=== PATIENT | male | born 1960 | race Caucasian/White ===

== ENCOUNTER 2024-03-10 09:33 | Emergency (ER) | payer OTHER ==
[~2024-03-10] VITALS: Ht 170.2 cm; Wt 65.8 kg
[2024-03-10 09:39] VITALS: TEMP 99.4
[2024-03-10] MEDS: KETOROLAC TROMETHAMINE 30 MG/ML VIAL IV STA (09:58)
[2024-03-10] MEDS: ALBUTEROL SULF 0.083% NEB SOLN 3 ML NEB NEB STA (10:05)
[2024-03-10 10:06] VITALS: PULSE 93; RESP 24; O2SAT 96
[2024-03-10] MEDS: IPRATROPIUM BROMIDE 0.02% 2.5 ML NEB NEB ONE (10:06)
[2024-03-10 10:09] LABS: BASOPHILS % 0.7 % (0.0-1.0); EOSINOPHILS % 0.5 % (0.0-6.0); HEMATOCRIT 46.3 % (38.2-49.6); HEMOGLOBIN 15.8 g/dL (14.0-18.0); LYMPHOCYTES # (AUTO) 1.9 (1.0-3.2); MEAN CORPUSCULAR HGB CONC 34.1 g/dL (31-35); MEAN CORPUSCULAR VOLUME 99.6 fL (81-99); MONOCYTES # (AUTO) 0.7 (0.2-0.8); MONOCYTES % 11.8 % (4.4-11.3); NEUTROPHILS % 52.6 % (38.7-80.0); PLATELET COUNT 149 x10e3/uL (140-360); RED BLOOD COUNT 4.65 x10e6/uL (4.3-5.7); RED CELL DISTRIBUTION WIDTH 12.2 % (11.7-14.4)
[2024-03-10 10:28] LABS: ALBUMIN 3.6 g/dL (3.5-5.0); ALBUMIN/GLOBULIN RATIO 0.8 (0.8-2.0); BILIRUBIN,TOTAL 1.1 mg/dL (0.2-1.2); CALCIUM 9.6 mg/dL (8.4-10.2); CREATININE, SERUM 1.12 mg/dL (0.72-1.25); TOTAL PROTEIN 8.2 g/dL (6.5-8.1)
[2024-03-10 10:48] VITALS: RESP 24
[2024-03-10 10:49] LABS: ANION GAP 22.3 mmol/L (8-16); POTASSIUM 4.3 mmol/L (3.0-5.1)
[2024-03-10 11:18] VITALS: PULSE 80
[2024-03-10] MEDS ORDERED: DEXAMETHASONE6 MG PO (11:45)
[2024-03-10 12:02] VITALS: BP 126/88; PULSE 82; RESP 22; O2SAT 95
[2024-03-22] MEDS ORDERED: PREDNISONE20 MG PO (10:52)
[2024-03-22] MEDS ORDERED: DOXYCYCLINE HY100 MG PO (10:52)
[2024-03-22] MEDS ORDERED: ALBUTEROL1.25 MG/3 NEB (10:54)
[2024-03-22] MEDS ORDERED: ALBUTEROL2.5 MG/3 M NEB (10:59)
[2024-03-22] MEDS ORDERED: VENTOLIN HFA18 GM INH (10:59)
== END 2024-03-10 12:02 | disposition home or self-care (01) ==
LOC: ER 09:37
DX: J44.1 Chronic obstructive pulmonary disease with (acute) exacerbation (principal); Z72.0 Tobacco use
CPT/HCPCS: 36415; 71045; 80053; 83880; 85025; 93005; 94640; 94799; 99284; J1885

== ENCOUNTER 2024-06-15 07:32 | Emergency (ER) | payer OTHER ==
[~2024-06-15] VITALS: Ht 170.2 cm; Wt 56.7 kg
[~2024-06-15 07:32] MED LIST: ALBUTEROL1.25 MG/3 NEB; ALBUTEROL2.5 MG/3 M NEB; DEXAMETHASONE6 MG PO; DOXYCYCLINE HY100 MG PO; PREDNISONE20 MG PO; VENTOLIN HFA18 GM INH
[2024-06-15 07:35] VITALS: TEMP 98.2
[2024-06-15] MEDS ORDERED: METHYLPREDNISOLONE SOD SUCC 125 MG/2ML VIAL ONE (07:46)
[2024-06-15 07:57] LABS: BASOPHILS # (AUTO) 0.1 (0.0-0.1); BASOPHILS % 1.2 % (0.0-1.0); EOSINOPHILS # (AUTO) 0.5 (0.0-0.4); EOSINOPHILS % 7.1 % (0.0-6.0); HEMATOCRIT 50.3 % (38.2-49.6); HEMOGLOBIN 16.7 g/dL (14.0-18.0); LYMPHOCYTES # (AUTO) 2.5 (1.0-3.2); LYMPHOCYTES % 36.7 % (18.0-39.1); MEAN CORPUSCULAR HEMOGLOBIN 33.5 pg (28-32); MEAN CORPUSCULAR HGB CONC 33.2 g/dL (31-35); MONOCYTES # (AUTO) 0.6 (0.2-0.8); MONOCYTES % 8.9 % (4.4-11.3); NEUTROPHILS # (AUTO) 3.1 (2.1-6.9); NEUTROPHILS % 45.8 % (38.7-80.0); PLATELET COUNT 156 x10e3/uL (140-360); RED BLOOD COUNT 4.98 x10e6/uL (4.3-5.7); RED CELL DISTRIBUTION WIDTH 11.9 % (11.7-14.4); WHITE BLOOD COUNT 6.76 x10e3/uL (4.8-10.8)
[2024-06-15 07:58] VITALS: PULSE 87; RESP 19
[2024-06-15] MEDS: SODIUM CHLORIDE 0.9% 500ML 500 ML IV ONE (07:58)
[2024-06-15] MEDS: METHYLPREDNISOLONE SOD SUCC 125 MG/2ML VIAL IV STA (08:04)
[2024-06-15] MEDS: HYDROCODONE/APAP 5MG-325MG TAB PO ONE (08:06)
[2024-06-15 08:12] LABS: INR 0.92; PROTHROMBIN TIME 12.9 seconds (11.9-14.5)
[2024-06-15 08:13] LABS: PARTIAL THROMBOPLASTIN TIME 25.8 seconds (23.8-35.5)
[2024-06-15 08:22] VITALS: PULSE 86; RESP 18; O2SAT 97
[2024-06-15 08:22] LABS: ALBUMIN 3.9 g/dL (3.5-5.0); ALBUMIN/GLOBULIN RATIO 0.9 (0.8-2.0); ANION GAP 13.9 mmol/L (8-16); BILIRUBIN,TOTAL 0.8 mg/dL (0.2-1.2); CALCIUM 10.2 mg/dL (8.4-10.2); CREATININE, SERUM 0.96 mg/dL (0.72-1.25); MAGNESIUM 2.2 MG/DL (1.3-2.1); POTASSIUM 4.9 mmol/L (3.5-5.1); TOTAL PROTEIN 8.3 g/dL (6.5-8.1)
[2024-06-15 08:23] VITALS: PULSE 86; RESP 18; O2SAT 97
[2024-06-15] MEDS: ALBUTEROL/IPRATROPIUM 3 ML NEB NEB ONE (08:23)
[2024-06-15 08:28] LABS: TROPONIN I 0.008 ng/mL (0-0.300)
[2024-06-15] MEDS ORDERED: VENTOLIN HFA18 GM INH (09:04)
[2024-06-15] MEDS ORDERED: MEDROL4 M2 PO (09:04)
[2024-06-15] MEDS ORDERED: DOXYCYCLINE HY100 M3 PO (09:04)
== END 2024-06-15 10:15 | disposition home or self-care (01) ==
LOC: ER 07:44
DX: R06.00 Dyspnea, unspecified (principal); J44.1 Chronic obstructive pulmonary disease with (acute) exacerbation; R05.9 Cough, unspecified; M54.9 Dorsalgia, unspecified; G89.29 Other chronic pain
CPT/HCPCS: 36415; 71045; 80053; 82550; 83735; 84484; 85025; 85610; 85730; 93005; 94799; 99284; J2919; J7040

== ENCOUNTER 2024-07-06 18:12 | Emergency (ER) | payer OTHER ==
[~2024-07-06] VITALS: Ht 170.2 cm; Wt 56.7 kg
[~2024-07-06 18:12] MED LIST changes: +DOXYCYCLINE HY100 M3 PO; +MEDROL4 M2 PO
[2024-07-06 18:23] VITALS: RESP 20; TEMP 98.1
[2024-07-06 18:37] LABS: BASOPHILS % 0.2 % (0.0-1.0); EOSINOPHILS % 0.7 % (0.0-6.0); HEMATOCRIT 44.5 % (38.2-49.6); HEMOGLOBIN 14.5 g/dL (14.0-18.0); LYMPHOCYTES # (AUTO) 2.2 (1.0-3.2); LYMPHOCYTES % 35.6 % (18.0-39.1); MEAN CORPUSCULAR HEMOGLOBIN 33.5 pg (28-32); MEAN CORPUSCULAR HGB CONC 32.6 g/dL (31-35); MEAN CORPUSCULAR VOLUME 102.8 fL (81-99); MONOCYTES # (AUTO) 0.6 (0.2-0.8); MONOCYTES % 10.1 % (4.4-11.3); NEUTROPHILS # (AUTO) 3.3 (2.1-6.9); NEUTROPHILS % 52.9 % (38.7-80.0); PLATELET COUNT 128 x10e3/uL (140-360); RED BLOOD COUNT 4.33 x10e6/uL (4.3-5.7); RED CELL DISTRIBUTION WIDTH 11.6 % (11.7-14.4); WHITE BLOOD COUNT 6.15 x10e3/uL (4.8-10.8)
[2024-07-06 19:01] LABS: ALBUMIN 3.4 g/dL (3.5-5.0); ANION GAP 14.8 mmol/L (8-16); BILIRUBIN,TOTAL 0.6 mg/dL (0.2-1.2); CREATININE, SERUM 0.96 mg/dL (0.72-1.25); POTASSIUM 3.8 mmol/L (3.5-5.1); TOTAL PROTEIN 6.7 g/dL (6.5-8.1)
[2024-07-06] MEDS ORDERED: AZITHROMYCIN250 MG PO (19:32)
[2024-07-06] MEDS ORDERED: KETOROLAC TROME10 MG PO (19:32)
[2024-07-06 19:35] VITALS: PULSE 66
[2024-07-06 19:43] VITALS: BP 129/84; O2SAT 100
== END 2024-07-06 19:44 | disposition home or self-care (01) ==
LOC: ER 18:16
DX: R10.12 Left upper quadrant pain (principal); S22.32XA Fracture of one rib, left side, initial encounter for closed fracture; J44.9 Chronic obstructive pulmonary disease, unspecified; M54.9 Dorsalgia, unspecified; G89.29 Other chronic pain
CPT/HCPCS: 36415; 74176; 80053; 83690; 85025; 99284

== ENCOUNTER 2024-07-08 20:27 | Inpatient (IN) | payer OTHER ==
[~2024-07-08] VITALS: Ht 170.2 cm; Wt 51.4 kg
[~2024-07-08 20:27] MED LIST changes: +AZITHROMYCIN250 MG PO; +KETOROLAC TROME10 MG PO
[2024-07-08 20:30] VITALS: PULSE 86; RESP 18; TEMP 98.6
[2024-07-08] MEDS ORDERED: DIAZEPAM INJ 5 MG/ML 2 ML IV ONE (20:30)
[2024-07-08] MEDS: ALBUTEROL/IPRATROPIUM 3 ML NEB NEB STA ×2 (20:32→21:06)
[2024-07-08] MEDS ORDERED: ONDANSETRON HCL INJ 2MG/ML 2ML 2 MG/ML VIAL IV PRN (20:45)
[2024-07-08] MEDS: SODIUM CHLORIDE 0.9% 1000ML 1,000 ML IV SCH (20:45)
[2024-07-08] MEDS ORDERED: Morphine 4mg INJECTION 4 MG/ML INJ IV PRN (20:45)
[2024-07-08 21:04] VITALS: PULSE 85; RESP 22; O2SAT 100
[2024-07-08 21:10] LABS: BASOPHILS % 0.2 % (0.0-1.0); EOSINOPHILS # (AUTO) 0.3 (0.0-0.4); EOSINOPHILS % 5.1 % (0.0-6.0); HEMATOCRIT 41.7 % (38.2-49.6); HEMOGLOBIN 13.6 g/dL (14.0-18.0); LYMPHOCYTES # (AUTO) 2.1 (1.0-3.2); LYMPHOCYTES % 41.3 % (18.0-39.1); MEAN CORPUSCULAR HEMOGLOBIN 33.6 pg (28-32); MEAN CORPUSCULAR HGB CONC 32.6 g/dL (31-35); MONOCYTES # (AUTO) 0.5 (0.2-0.8); MONOCYTES % 9.6 % (4.4-11.3); NEUTROPHILS # (AUTO) 2.2 (2.1-6.9); NEUTROPHILS % 42.8 % (38.7-80.0); PLATELET COUNT 145 x10e3/uL (140-360); RED BLOOD COUNT 4.05 x10e6/uL (4.3-5.7); RED CELL DISTRIBUTION WIDTH 11.7 % (11.7-14.4); WHITE BLOOD COUNT 5.09 x10e3/uL (4.8-10.8)
[2024-07-08 21:25] LABS: ALBUMIN 3.4 g/dL (3.5-5.0); ANION GAP 13.3 mmol/L (8-16); BILIRUBIN,TOTAL 0.4 mg/dL (0.2-1.2); CALCIUM 8.9 mg/dL (8.4-10.2); CREATININE, SERUM 0.87 mg/dL (0.72-1.25); TOTAL PROTEIN 6.7 g/dL (6.5-8.1)
[2024-07-08 21:31] LABS: TROPONIN I 0.012 ng/mL (0-0.300)
[2024-07-08 21:32] LABS: POTASSIUM 3.3 mmol/L (3.5-5.1)
[2024-07-08] MEDS ORDERED: ACETAMINOPHEN 325 MG TAB PO PRN (23:30)
[2024-07-08] MEDS ORDERED: LABETALOL HCL 5 MG/ML 20ML VIAL IV PRN (23:30)
[2024-07-08] MEDS ORDERED: POLYETHYLENE GLYCOL 3350 17 GM PACK PO PRN (23:30)
[2024-07-09] VITALS (29 sets, daily range): BP systolic 1–163; BP diastolic 57–98; PULSE 58–99; RESP 14–25; TEMP 97.5–99.5; O2SAT 83–100
[2024-07-09] MEDS: LORAZEPAM INJ 2 MG/ML VIAL IV STA (00:21)
[2024-07-09 07:16] LABS: BASOPHILS % 0.5 % (0.0-1.0); EOSINOPHILS # (AUTO) 0.2 (0.0-0.4); EOSINOPHILS % 3.6 % (0.0-6.0); HEMATOCRIT 38.4 % (38.2-49.6); HEMOGLOBIN 12.3 g/dL (14.0-18.0); LYMPHOCYTES # (AUTO) 1.8 (1.0-3.2); LYMPHOCYTES % 27.3 % (18.0-39.1); MEAN CORPUSCULAR HEMOGLOBIN 33.2 pg (28-32); MEAN CORPUSCULAR VOLUME 103.8 fL (81-99); MONOCYTES # (AUTO) 0.6 (0.2-0.8); MONOCYTES % 9.9 % (4.4-11.3); NEUTROPHILS # (AUTO) 3.8 (2.1-6.9); NEUTROPHILS % 58.1 % (38.7-80.0); PLATELET COUNT 149 x10e3/uL (140-360); RED CELL DISTRIBUTION WIDTH 11.9 % (11.7-14.4); WHITE BLOOD COUNT 6.45 x10e3/uL (4.8-10.8)
[2024-07-09 07:33] LABS: ALBUMIN 2.9 g/dL (3.5-5.0); ALBUMIN/GLOBULIN RATIO 1.1 (0.8-2.0); ANION GAP 11.2 mmol/L (8-16); BILIRUBIN,TOTAL 0.5 mg/dL (0.2-1.2); CALCIUM 8.2 mg/dL (8.4-10.2); CREATININE, SERUM 0.8 mg/dL (0.72-1.25); TOTAL PROTEIN 5.5 g/dL (6.5-8.1)
[2024-07-09 07:35] LABS: POTASSIUM 3.2 mmol/L (3.5-5.1)
[2024-07-09 08:11] LABS: CHOL/HDL RATIO 2.1 (3.9-4.7); MAGNESIUM 1.8 MG/DL (1.3-2.1); PHOSPHORUS 2.7 MG/DL (2.3-4.7)
[2024-07-09 08:12] LABS: TROPONIN I 0.001 ng/mL (0-0.300)
[2024-07-09 08:34] LABS: FREE T4 (FREE THYROXINE) 1.05 ng/dL (0.8-1.8); THYROID STIMULATING HORMONE 1.987 uIU/mL (0.350-4.940)
[2024-07-09] MEDS: ALBUTEROL SULF 0.083% NEB SOLN 3 ML NEB NEB SCH (08:37)
[2024-07-09] MEDS: ALBUTEROL SULF 0.083% NEB SOLN 3 ML NEB ONE (08:49)
[2024-07-09] MEDS: DOCUSATE SODIUM 100 MG CAP PO SCH (09:00)
[2024-07-09] MEDS: METHYLPREDNISOLONE SOD SUCC 40 MG/ML VIAL 1ML IV SCH (09:27)
[2024-07-09] MEDS: POTASSIUM CHLORIDE 20 MEQ TAB CR PO ONE (09:27)
[2024-07-09] MEDS: Doxycycline IV 100 MG in SODIUM CHLORIDE 0.9% 100 ML IV SCH (09:27)
[2024-07-09] MEDS: FAMOTIDINE 20 MG/2 ML VIAL IV SCH (09:27)
[2024-07-09] MEDS: ALBUTEROL SULF 0.083% NEB SOLN 3 ML NEB NEB PRN (11:54)
[2024-07-09] MEDS: HYDROCODONE/APAP 5MG-325MG TAB PO PRN (14:35)
[2024-07-09 15:23] LABS: TROPONIN I 0.012 ng/mL (0-0.300)
[2024-07-09] MEDS: BUDESONIDE/FORMOTEROL 160/4.5MCG INHALER INH SCH (19:05)
[2024-07-10] VITALS (32 sets, daily range): BP systolic 95–125; BP diastolic 56–80; PULSE 48–77; RESP 13–24; TEMP 98.1–98.6; O2SAT 95–100
[2024-07-10] MEDS: POTASSIUM CHLORIDE 20 MEQ TAB CR PO ONE ×2 (14:26→14:27)
[2024-07-10] MEDS ORDERED: IOPAMIDOL 370 MG/ML 100 ML INFUS..BTL INJ ONE (15:08)
[2024-07-11] VITALS (20 sets, daily range): BP systolic 97–134; BP diastolic 51–94; PULSE 37–80; RESP 13–22; TEMP 98.3–98.4; O2SAT 98–100
[2024-07-11 07:04] LABS: BASOPHILS % 0.3 % (0.0-1.0); EOSINOPHILS # (AUTO) 0.1 (0.0-0.4); EOSINOPHILS % 0.5 % (0.0-6.0); HEMATOCRIT 41.4 % (38.2-49.6); HEMOGLOBIN 13.1 g/dL (14.0-18.0); LYMPHOCYTES # (AUTO) 2.2 (1.0-3.2); LYMPHOCYTES % 22.9 % (18.0-39.1); MEAN CORPUSCULAR HEMOGLOBIN 33.3 pg (28-32); MEAN CORPUSCULAR HGB CONC 31.6 g/dL (31-35); MEAN CORPUSCULAR VOLUME 105.3 fL (81-99); MONOCYTES # (AUTO) 0.7 (0.2-0.8); MONOCYTES % 7.2 % (4.4-11.3); NEUTROPHILS # (AUTO) 6.6 (2.1-6.9); NEUTROPHILS % 68.3 % (38.7-80.0); PLATELET COUNT 142 x10e3/uL (140-360); RED BLOOD COUNT 3.93 x10e6/uL (4.3-5.7); RED CELL DISTRIBUTION WIDTH 11.9 % (11.7-14.4); WHITE BLOOD COUNT 9.71 x10e3/uL (4.8-10.8)
[2024-07-11 07:40] LABS: ALBUMIN 2.8 g/dL (3.5-5.0); ALBUMIN/GLOBULIN RATIO 0.9 (0.8-2.0); ANION GAP 9.9 mmol/L (8-16); BILIRUBIN,TOTAL 0.3 mg/dL (0.2-1.2); CALCIUM 8.8 mg/dL (8.4-10.2); CREATININE, SERUM 0.81 mg/dL (0.72-1.25); POTASSIUM 3.9 mmol/L (3.5-5.1); TOTAL PROTEIN 5.8 g/dL (6.5-8.1)
[2024-07-12] MEDS ORDERED: PREDNISONE 20 MG TAB PO SCH (09:00)
== END 2024-07-11 15:05 | disposition left against medical advice (07) | DRG 190 ==
LOC: ER 20:29 → ERHOLD 20:41 → ICU 07-09 00:05
PROVIDERS: ADMIT Internal Medicine; ATTEND Internal Medicine
PROC: 5A09357 Assistance with Respiratory Ventilation, Less than 24 Consecutive Hours, Continuous Positive Airway Pressure (ICD-10-PCS; principal; 2024-07-08)
DX: J44.1 Chronic obstructive pulmonary disease with (acute) exacerbation (principal); E43 Unspecified severe protein-calorie malnutrition; J96.20 Acute and chronic respiratory failure, unspecified whether with hypoxia or hypercapnia; R64 Cachexia; S22.32XA Fracture of one rib, left side, initial encounter for closed fracture; Z68.1 Body mass index [BMI] 19.9 or less, adult; E87.6 Hypokalemia; D64.9 Anemia, unspecified; J43.9 Emphysema, unspecified; G89.4 Chronic pain syndrome; M47.817 Spondylosis without myelopathy or radiculopathy, lumbosacral region; R93.3 Abnormal findings on diagnostic imaging of other parts of digestive tract; R53.81 Other malaise; R45.1 Restlessness and agitation; Z79.51 Long term (current) use of inhaled steroids; Z79.52 Long term (current) use of systemic steroids; X58.XXXA Exposure to other specified factors, initial encounter; Z87.828 Personal history of other (healed) physical injury and trauma; Z87.891 Personal history of nicotine dependence
CPT/HCPCS: 36415; 71045; 74177; 80053; 80061; 82550; 83036; 83690; 83735; 83880; 84100; 84439; 84443; 84484; 85025; 93005; 94640; 94660; 94664; 94799; 99252; 99284; J2919; J7030; J7050; Q9967

== ENCOUNTER 2025-02-20 20:49 | Inpatient (IN) | payer OTHER ==
[~2025-02-20] VITALS: Ht 170.2 cm; Wt 52.2 kg
[2025-02-20 20:50] VITALS: TEMP 98.1
[2025-02-20 21:22] LABS: BASOPHILS % 0.3 % (0.0-1.0); EOSINOPHILS % 2.0 % (0.0-6.0); LYMPHOCYTES % 49.1 % (18.0-39.1); MONOCYTES % 8.7 % (4.4-11.3); NEUTROPHILS % 39.4 % (38.7-80.0); RED CELL DISTRIBUTION WIDTH 12.3 % (11.7-14.4)
[2025-02-20 21:34] VITALS: PULSE 81; RESP 20; O2SAT 96
[2025-02-20] MEDS: ALBUTEROL/IPRATROPIUM 3 ML NEB NEB SCH (21:34)
[2025-02-20 21:52] LABS: EST GLOMERULAR FILTRATION RATE 86.0 ML/MIN (>=60)
[2025-02-20] MEDS: METHYLPREDNISOLONE SOD SUCC 125 MG/2ML VIAL IV SCH (22:21)
[2025-02-20] MEDS: SODIUM CHLORIDE 0.9% 1000ML 1,000 ML IV SCH (22:22)
[2025-02-20 22:45] VITALS: PULSE 75; RESP 16
[2025-02-20] MEDS ORDERED: SPIRIVA18 MCG INH (23:03)
[2025-02-20] MEDS ORDERED: STIOLTO RESPIMAT4 G2 (23:03)
[2025-02-20 23:30] VITALS: BP 113/69; PULSE 66; RESP 19; TEMP 98.2; O2SAT 96
[2025-02-21] VITALS (11 sets, daily range): BP systolic 99–141; BP diastolic 51–90; PULSE 57–112; RESP 18–20; TEMP 97.5–98.4; O2SAT 95–100
[2025-02-21 05:26] LABS: BASOPHILS % 0.3 % (0.0-1.0); EOSINOPHILS % 0.0 % (0.0-6.0); LYMPHOCYTES % 21.5 % (18.0-39.1); MONOCYTES % 2.1 % (4.4-11.3); NEUTROPHILS % 75.4 % (38.7-80.0); RED CELL DISTRIBUTION WIDTH 12.3 % (11.7-14.4)
[2025-02-21 05:56] LABS: EST GLOMERULAR FILTRATION RATE 78.0 ML/MIN (>=60)
[2025-02-21] MEDS: ACETAMINOPHEN 325 MG TAB PO PRN (09:32)
[2025-02-21] MEDS ORDERED: ALBUTEROL 90 MCG/ACT INHALER INH PRN (11:45)
[2025-02-21] MEDS ORDERED: ONDANSETRON HCL INJ 2MG/ML 2ML 2 MG/ML VIAL IV PRN (11:45)
[2025-02-21] MEDS ORDERED: TEMAZEPAM 15 MG CAP PO PRN (11:45)
[2025-02-21] MEDS: Doxycycline IV 100 MG in SODIUM CHLORIDE 0.9% 100 ML IV SCH (12:39)
[2025-02-21] MEDS: ALBUTEROL SULF 0.083% NEB SOLN 3 ML NEB NEB SCH (13:00)
[2025-02-21] MEDS: WATER STERILE 10 ML VIAL IV PRN (21:32)
[2025-02-21] MEDS: METHYLPREDNISOLONE SOD SUCC 125 MG/2ML VIAL IV SCH (21:33)
[2025-02-22] VITALS (9 sets, daily range): BP systolic 102–115; BP diastolic 47–99; PULSE 61–82; RESP 16–20; TEMP 96.9–98.2; O2SAT 95–100
[2025-02-22] MEDS ORDERED: TIOTROPIUM 18 MCG INH POWDER INH SCH (09:00)
[2025-02-22] MEDS ORDERED: VENTOLIN HFA18 GM INH (12:27)
[2025-02-22] MEDS ORDERED: DOXYCYCLINE HY100 MG PO (12:27)
[2025-02-22] MEDS ORDERED: PREDNISONE20 MG PO (12:27)
[2025-02-22] MEDS: DOXYCYCLINE HYCLATE TABLET 100 MG TAB PO SCH (13:00)
== END 2025-02-22 13:50 | disposition home or self-care (01) | DRG 189 ==
LOC: ER 20:52 → ERHOLD 22:03 → MED/SURG 23:30
PROVIDERS: ADMIT Internal Medicine; ATTEND Internal Medicine
DX: J96.21 Acute and chronic respiratory failure with hypoxia (principal); E43 Unspecified severe protein-calorie malnutrition; J44.1 Chronic obstructive pulmonary disease with (acute) exacerbation; R64 Cachexia; N17.9 Acute kidney failure, unspecified; Z68.1 Body mass index [BMI] 19.9 or less, adult; K75.9 Inflammatory liver disease, unspecified; D72.819 Decreased white blood cell count, unspecified; R53.81 Other malaise; M54.9 Dorsalgia, unspecified; Z99.81 Dependence on supplemental oxygen; Z87.891 Personal history of nicotine dependence
CPT/HCPCS: 36415; 71045; 80053; 82550; 83690; 83880; 84484; 85025; 93005; 93306; 94640; 94799; 99252; 99284; J2919; J7030; J7050